=== PATIENT | female | born 1955 ===

== ENCOUNTER 2017-02-13 15:21 | Emergency (ER) | payer OTHER ==
[2017-02-13] MEDS ORDERED: Ondansetron 4 MG/2 ML SDV ONE (15:31)
[2017-02-13] MEDS ORDERED: Iopamidol 612 MG/ML 100 ML Bottle IV PRN (15:52)
[2017-02-13] MEDS ORDERED: Sodium Chloride 0.9% 10 ML SDV FLUSH ONE (15:52)
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
[2017-02-13] MEDS ORDERED: Sodium Chloride 0.9% 100 ML IV SCH (16:00)
[2017-02-13] MEDS ORDERED: Ondansetron 4 MG/2 ML SDV IVPUSH ONE ×2 (16:28→17:00)
[2017-02-13] MEDS ORDERED: Sodium Chloride 0.9% 1,000 ML IV ONE (17:47)
== END 2017-02-13 17:56 | disposition other institution (70) ==
LOC: JP.ED 15:21
DX: S32.810A Multiple fractures of pelvis with stable disruption of pelvic ring, initial encounter for closed fracture (principal); S02.80XA Fracture of other specified skull and facial bones, unspecified side, initial encounter for closed fracture; V43.62XA Car passenger injured in collision with other type car in traffic accident, initial encounter; Y92.410 Unspecified street and highway as the place of occurrence of the external cause
CPT/HCPCS: 36415; 51702; 70450; 70486; 71260; 72125; 74177; 80053; 85025; 86850; 86900; 86901; 96361; 96374; 96376; 99285; J2405; J7030; J7040; Q9967; 99284-25